=== PATIENT | male | born 1955 | race Hispanic/Latino ===

== ENCOUNTER → 2024-10-23 | Outpatient (REF) | payer OTHER ==
[2024-10-22 08:41] LABS: BASOPHILS % 0.8 % (0.0-1.0); EOSINOPHILS % 2.2 % (0.0-6.0); LYMPHOCYTES % 30.4 % (18.0-39.1); MONOCYTES % 6.4 % (4.4-11.3); NEUTROPHILS % 59.8 % (38.7-80.0); RED CELL DISTRIBUTION WIDTH 15.2 % (11.7-14.4)
[2024-10-22 08:56] LABS: EST GLOMERULAR FILTRATION RATE 87.0 ML/MIN (>=60)
[~2024-10-23] MED LIST: BUSPIRONE HCL5 MG PO; CLONAZEPAM0.25 MG PO; FENTANYL CITRATE/PF 100MCG/2 ML INJ ONE; HORIZANT600 MG PO; HYDROCODONE/APAP 5MG-325MG TAB ONE; METFORMIN HCL500 MG PO; MIDAZOLAM HCL 2 MG/2 ML VIAL ONE; PIOGLITAZONE HC45 MG PO; SODIUM CHLORIDE 0.9% 250ML 0 ML ONE; TAMSULOSIN HCL0.4 MG PO; VASOTEC5 MG PO; VITAMIN D PO
[2024-10-23 08:12] LABS: INR 0.97
== END ==
LOC: CT 10-22 07:57
PROVIDERS: ATTEND Pain Medicine Interventional Pain Medicine
DX: K75.81 Nonalcoholic steatohepatitis (NASH) (principal); K74.00 Hepatic fibrosis, unspecified; K44.9 Diaphragmatic hernia without obstruction or gangrene; K22.70 Barrett's esophagus without dysplasia; E11.9 Type 2 diabetes mellitus without complications; K21.00 Gastro-esophageal reflux disease with esophagitis, without bleeding; Z68.28 Body mass index [BMI] 28.0-28.9, adult; Z71.3 Dietary counseling and surveillance; F17.200 Nicotine dependence, unspecified, uncomplicated
CPT/HCPCS: 36415; 47000; 76942; 80053; 85025; 85610; 85730; 88307; 88313; J2250; J3010; J7050